=== PATIENT | male | born 1995 | race African-American/Black ===

== ENCOUNTER 2016-09-02 14:52 | Emergency (ER) | payer BC, OTHER ==
[~2016-09-02] VITALS: Ht 185.4 cm; Wt 97.5 kg
[2016-09-02 15:09] VITALS: BP 134/73
[2016-09-02] MEDS ORDERED: IBUPROFEN 600 MG TAB PO ONE (19:00)
[2016-09-02] MEDS ORDERED: CYCLOBENZAPRINE HCL 10 MG TAB PO ONE (19:00)
== END 2016-09-02 19:59 | disposition home or self-care (01) ==
LOC: EDBD 14:52 → ER 14:52
DX: S80.02XA Contusion of left knee, initial encounter (principal); Z88.1 Allergy status to other antibiotic agents; V43.62XA Car passenger injured in collision with other type car in traffic accident, initial encounter; Y93.89 Activity, other specified; Y99.8 Other external cause status; Y92.89 Other specified places as the place of occurrence of the external cause
CPT/HCPCS: 29505; 73562